=== PATIENT | male | born 1980 | race Caucasian/White ===

== ENCOUNTER 2018-10-16 22:21 | Emergency (ER) | payer BC ==
[~2018-10-16] VITALS: Ht 175.3 cm; Wt 68.0 kg
== END 2018-10-17 01:58 | disposition short-term general hospital (02) ==
LOC: EDSEX 22:21 → EDBD 22:21 → ED 22:21
DX: I46.9 Cardiac arrest, cause unspecified (principal); K92.2 Gastrointestinal hemorrhage, unspecified; J81.0 Acute pulmonary edema; R09.02 Hypoxemia; I95.9 Hypotension, unspecified
CPT/HCPCS: 31720; 36415; 36430; 36600; 51702; 71045; 74018; 80053; 81001; 82803; 85025; 85610; 85730; 86850; 86900; 86901; 86927; 94002; 94799; 99291; 99292; J3010; J3480; J7030